=== PATIENT | female | born 1975 | race Caucasian/White ===

== ENCOUNTER → 2016-10-30 | Outpatient (CLI) | payer BC ==
--- NOTE | 2016-10-30 15:00 | WOMENS IMAGING REPORT ---
EXAM DESCRIPTION: BILAT SCREENING MAMMO W/CAD COMPLETED DATE/TIME: 10/30/2016 2:46 pm REASON FOR STUDY: ROUTINE SCREENING; Z12.31 Z12.31 ENCNTR SCREEN MAMMOGRAM FOR MALIGNANT NEOPLASM O F ABELINO COMPARISON: 2011, 2014 TECHNIQUE: Standard craniocaudal and mediolateral oblique views of each breast recorded using [employer] l acquisition. LIMITATIONS: None. FINDINGS: No masses, calcifications or architectural distortion. No areas of suspicion. Read with the assistance of CAD. .[facility] - R2 Cenova Version 1.3 .[facility] Imaging - R2 Cenova Version 1.3 .[facility] Imaging - R2 Cenova Version 2.4 .[facility] [place]2 Cenova Version 2.4 .[facility] - R2 Legal Editor Version 9.2 IMPRESSION: NORMAL MAMMOGRAM. BIRADS 1. BREAST DENSITY: b. There are scattered areas of fibroglandular density. BIRAD: 1 NEGATIVE RECOMMENDATION: ROUTINE SCREENING COMMENT: The patient has been notified of the results by letter per SA requirements. Additional no tification policies are in place for contacting patient with suspicious or incomplete findings. Quality ID #[id number]: The [employer] recommends an annual screening mammogram for women aged 40 years or over. This facility utilizes a reminder system to ensure that all patients receive reminder letters, and/or direct phone calls for appointments. This includes reminders for routine scr eening mammograms, diagnostic mammograms, or other Breast Imaging Interventions when appropriate. Th is patient will be placed in the appropriate reminder system. The [employer] (ACR) has developed recommendations for screening MRI of the breast s in certain patient populations, to be used in conjunction with mammography. Breast MRI surveillanc e may be appropriate for women with more than 20% lifetime risk of developing breast cancer as deter mined by genetic testing, significant family history of the disease, or history of mantle radiation f or Hodgkins Disease. ACR Practice Guidelines 2008. TECHNICAL DOCUMENTATION: FINDING NUMBER: (1) ASSESSMENT: (1) JOB ID: [id number] [employer]- All Rights Reserved
== END ==
LOC: WI 14:32
PROVIDERS: ATTEND Advanced Practice Midwife
DX: Z12.31 Encounter for screening mammogram for malignant neoplasm of breast (principal)
CPT/HCPCS: 77067; G0202

== ENCOUNTER → 2018-03-13 | Outpatient (CLI) | payer BC ==
--- NOTE | 2018-03-13 08:44 | WOMENS IMAGING REPORT ---
EXAM DESCRIPTION: BILAT SCREENING MAMMO W/CAD COMPLETED DATE/TIME: 03/13/2018 8:31 am REASON FOR STUDY: SCREENING CIPAHW07.31 ENCNTR SCREEN MAMMOGRAM FOR MALIGNANT NEOPLASM OF ABELINO COMPARISON: Multiple since 2011 TECHNIQUE: Standard craniocaudal and mediolateral oblique views of each breast recorded using [employer] l acquisition. LIMITATIONS: None. FINDINGS: RIGHT BREAST MASSES: No suspicious masses. CALCIFICATIONS: No new or suspicious calcifications. ARCHITECTURAL DISTORTION: None. DEVELOPING DENSITY: None. ASYMMETRY: None noted. OTHER: No other significant findings. LEFT BREAST MASSES: In the left upper outer quadrant, a low-density well-circumscribed 1.5 cm nodule present for which additional cone compression views, 90 mediolateral view and left breast ultrasound are recomme nded. CALCIFICATIONS: No new or suspicious calcifications. ARCHITECTURAL DISTORTION: None. DEVELOPING DENSITY: None. ASYMMETRY: None noted. OTHER: No other significant findings. Read with the assistance of CAD. .[facility] - R2 Cenova Version 1.3 .[facility] Imaging - R2 Cenova Version 1.3 .[facility] Imaging - R2 Cenova Version 2.4 .[facility] - R2 Cenova Version 2.4 .[facility] - R2 Manager Of Environmental Services Version 9.2 IMPRESSION: No mammographic evidence for malignancy right breast. Mammographic nodule in the left upper outer quadrant for which additional cone compression views and ultrasound are recommended BREAST DENSITY: b. There are scattered areas of fibroglandular density. BIRAD: 0 Incomplete: Needs Additional Imaging Evaluation and/or prior Mammograms for Comparison. RECOMMENDATION: RECOMMENDED FOLLOW-UP: Left breast additional diagnostic mammograms and ultrasound The patient will be contacted for additional imaging. COMMENT: The patient has been notified of the results by letter per SA requirements. Additional no tification policies are in place for contacting patient with suspicious or incomplete findings. Quality ID #[id number]: The [employer] recommends an annual screening mammogram for women aged 40 years or over. This facility utilizes a reminder system to ensure that all patients receive reminder letters, and/or direct phone calls for appointments. This includes reminders for routine scr eening mammograms, diagnostic mammograms, or other Breast Imaging Interventions when appropriate. Th is patient will be placed in the appropriate reminder system. The [employer] (ACR) has developed recommendations for screening MRI of the breast s in certain patient populations, to be used in conjunction with mammography. Breast MRI surveillanc e may be appropriate for women with more than 20% lifetime risk of developing breast cancer as deter mined by genetic testing, significant family history of the disease, or history of mantle radiation f or Hodgkins Disease. ACR Practice Guidelines 2008. TECHNICAL DOCUMENTATION: FINDING NUMBER: (1) ASSESSMENT: (1) JOB ID: [id number] [employer]- All Rights Reserved Reading location - IP/workstation name: [email or web address]
== END ==
LOC: WI 08:05
PROVIDERS: ATTEND Family Medicine
DX: Z12.31 Encounter for screening mammogram for malignant neoplasm of breast (principal)
CPT/HCPCS: 77067

== ENCOUNTER → 2018-03-21 | Outpatient (CLI) | payer BC ==
--- NOTE | 2018-03-21 09:19 | WOMENS IMAGING REPORT ---
EXAM DESCRIPTION: LEFT DIAGNOSTIC MAMMO W/CAD; U/S BREAST UNILAT LIMITED COMPLETED DATE/TIME: 03/21/2018 8:26 am; 03/21/2018 8:48 am REASON FOR STUDY: N63.21 UNSPECIFIED LUMP IN THE LEFT BREAST, UPPER OUTER QUADRANT; N63.21 LUMP IN L EFT BREAST N63.21 UNSPECIFIED LUMP IN THE LEFT BREAST, UPPER OUTER QUAD COMPARISON: Multiple since 2011 TECHNIQUE: Cone compression craniocaudal and mediolateral oblique images of the breast recorded with digital acquisition. Additional left breast 90 mediolateral view, additional left breast ultrasound was performed LIMITATIONS: None. FINDINGS: BREAST: Left MASSES: Persistent nodule left breast upper outer quadrant, about 12 mm in diameter. CALCIFICATIONS: No new or suspicious calcifications. ARCHITECTURAL DISTORTION: None. DEVELOPING DENSITY: None. ASYMMETRY: None noted. OTHER: No other significant findings. Read with the assistance of CAD. .[facility] - R2 Cenova Version 1.3 .[facility] Imaging - R2 Cenova Version 1.3 .[facility] Imaging - R2 Cenova Version 2.4 .[facility] - R2 Cenova Version 2.4 .[facility] - R2 Metal Bumper Version 9.2 Left breast ultrasound: Left breast ultrasound was performed. 5 to 6 cm from the nipple at the 12 to 1 o'clock position, a w ell-circumscribed anechoic cyst is present measuring 1.5 x 1.2 x 1 cm in size. This is benign and re quires no further specific follow up IMPRESSION: No mammographic or sonographic evidence for malignancy left breast BREAST DENSITY: b. There are scattered areas of fibroglandular density. BIRAD: 2 Benign findings. RECOMMENDATION: RECOMMENDED FOLLOW UP: Please continue yearly bilateral screening mammography in Mar SPECIFIC INTERVENTION/IMAGING/CONSULTATION RECOMMENDED:No additional intervention/ imaging/consultati on needed at this time. COMMUNICATION:The negative/benign results were communicated to the patient. COMMENT: The patient has been notified of the results by letter per MQSA requirements. Additional no tification policies are in place for contacting patient with suspicious or incomplete findings. Quality ID #[id number]: The [employer] recommends an annual screening mammogram for women aged 40 years or over. This facility utilizes a reminder system to ensure that all patients receive reminder letters, and/or direct phone calls for appointments. This includes reminders for routine scr eening mammograms, diagnostic mammograms, or other Breast Imaging Interventions when appropriate. Th is patient will be placed in the appropriate reminder system. The [employer] (ACR) has developed recommendations for screening MRI of the breast s in certain patient populations, to be used in conjunction with mammography. Breast MRI surveillanc e may be appropriate for women with more than 20% lifetime risk of developing breast cancer as deter mined by genetic testing, significant family history of the disease, or history of mantle radiation f or Hodgkins Disease. ACR Practice Guidelines 2008. TECHNICAL DOCUMENTATION: FINDING NUMBER: (1) ASSESSMENT: (1) JOB ID: [id number] [employer]- All Rights Reserved Reading location - IP/workstation name: [email or web address]
--- NOTE | 2018-03-21 09:19 | WOMENS IMAGING REPORT ---
EXAM DESCRIPTION: LEFT DIAGNOSTIC MAMMO W/CAD; U/S BREAST UNILAT LIMITED COMPLETED DATE/TIME: 03/21/2018 8:26 am; 03/21/2018 8:48 am REASON FOR STUDY: N63.21 UNSPECIFIED LUMP IN THE LEFT BREAST, UPPER OUTER QUADRANT; N63.21 LUMP IN L EFT BREAST N63.21 UNSPECIFIED LUMP IN THE LEFT BREAST, UPPER OUTER QUAD COMPARISON: Multiple since 2011 TECHNIQUE: Cone compression craniocaudal and mediolateral oblique images of the breast recorded with digital acquisition. Additional left breast 90 mediolateral view, additional left breast ultrasound was performed LIMITATIONS: None. FINDINGS: BREAST: Left MASSES: Persistent nodule left breast upper outer quadrant, about 12 mm in diameter. CALCIFICATIONS: No new or suspicious calcifications. ARCHITECTURAL DISTORTION: None. DEVELOPING DENSITY: None. ASYMMETRY: None noted. OTHER: No other significant findings. Read with the assistance of CAD. .[facility] - R2 Cenova Version 1.3 .[facility] Imaging - R2 Cenova Version 1.3 .[facility] Imaging - R2 Cenova Version 2.4 .[facility] [place] - R2 Cenova Version 2.4 .[facility] [place] - R2 Labor Gang Supervisor Version 9.2 Left breast ultrasound: Left breast ultrasound was performed. 5 to 6 cm from the nipple at the 12 to 1 o'clock position, a w ell-circumscribed anechoic cyst is present measuring 1.5 x 1.2 x 1 cm in size. This is benign and re quires no further specific follow up IMPRESSION: No mammographic or sonographic evidence for malignancy left breast BREAST DENSITY: b. There are scattered areas of fibroglandular density. BIRAD: 2 Benign findings. RECOMMENDATION: RECOMMENDED FOLLOW UP: Please continue yearly bilateral screening mammography in Mar SPECIFIC INTERVENTION/IMAGING/CONSULTATION RECOMMENDED:No additional intervention/ imaging/consultati on needed at this time. COMMUNICATION:The negative/benign results were communicated to the patient. COMMENT: The patient has been notified of the results by letter per MQSA requirements. Additional no tification policies are in place for contacting patient with suspicious or incomplete findings. Quality ID #[id number]: The [employer] recommends an annual screening mammogram for women aged 40 years or over. This facility utilizes a reminder system to ensure that all patients receive reminder letters, and/or direct phone calls for appointments. This includes reminders for routine scr eening mammograms, diagnostic mammograms, or other Breast Imaging Interventions when appropriate. Th is patient will be placed in the appropriate reminder system. The [employer] (ACR) has developed recommendations for screening MRI of the breast s in certain patient populations, to be used in conjunction with mammography. Breast MRI surveillanc e may be appropriate for women with more than 20% lifetime risk of developing breast cancer as deter mined by genetic testing, significant family history of the disease, or history of mantle radiation f or Hodgkins Disease. ACR Practice Guidelines 2008. TECHNICAL DOCUMENTATION: FINDING NUMBER: (1) ASSESSMENT: (1) JOB ID: [id number] [employer]- All Rights Reserved Reading location - IP/workstation name: [email or web address]
== END ==
LOC: WI 08:01
PROVIDERS: ATTEND Family Medicine
DX: N63.21 Unspecified lump in the left breast, upper outer quadrant (principal)
CPT/HCPCS: 76642

== ENCOUNTER → 2019-05-27 | Outpatient (CLI) | payer BC ==
--- NOTE | 2019-05-27 17:14 | WOMENS IMAGING REPORT ---
EXAM DESCRIPTION: BILAT SCREENING MAMMO W/CAD COMPLETED DATE/TIME: 05/27/2019 2:28 pm REASON FOR STUDY: Z12.39 SCREENING MAMMO Z12.39 ENCOUNTER FOR OT SCREENING FOR MALIGNANT NEOPLASM OF COMPARISON: 2016, 2017, 2018 EXAM PARAMETERS: Standard craniocaudal and mediolateral oblique views of each breast recorded using digital acquisition. Read with the assistance of CAD. .[facility] - R2 Senior Instrumentation Engineer Version 9.2 LIMITATIONS: None. FINDINGS: No suspicious masses, suspicious calcifications or architectural distortion. No areas of c oncern. IMPRESSION: Negative MAMMOGRAM. BIRADS 1 BREAST DENSITY: c. The breasts are heterogeneously dense, which may obscure small masses. BIRAD: ASSESSMENT: 1 NEGATIVE RECOMMENDATION: ROUTINE SCREENING Please continue yearly bilateral screening mammography/tomosynthesis in May 2020 COMMENT: The patient has been notified of the results by letter per SA requirements. Additional no tification policies are in place for contacting patient with suspicious or incomplete findings. Quality ID #[id number]: The [employer] recommends an annual screening mammogram for women aged 40 years or over. This facility utilizes a reminder system to ensure that all patients receive reminder letters, and/or direct phone calls for appointments. This includes reminders for routine scr eening mammograms, diagnostic mammograms, or other Breast Imaging Interventions when appropriate. Th is patient will be placed in the appropriate reminder system. TECHNICAL DOCUMENTATION: FINDING NUMBER: (1) ASSESSMENT: (1) JOB ID: [id number] [employer]- All Rights Reserved Reading location - IP/workstation name: [email or web address]
== END ==
LOC: WI 13:50
PROVIDERS: ATTEND Family Medicine
DX: Z12.31 Encounter for screening mammogram for malignant neoplasm of breast (principal)
CPT/HCPCS: 77067

== ENCOUNTER 2019-08-22 07:51 | Outpatient (CLI) | payer BC ==
[~2019-08-22 07:51] MED LIST: CYANOCOBALAMIN (VITAMIN B-12) INJ 1000 MCG/1 ML VIAL IM PRN; FERUMOXYTOL (NON-ESRD) 510 MG/NS 100 ML IV PRN; NORMAL SALINE 250 ML IV PRN
[2019-08-22 07:57] VITALS: BP 117/73
== END 2019-08-22 09:27 | disposition home or self-care (01) ==
LOC: II 07:51 → 5TH 07:51 → II 09:27
PROVIDERS: ATTEND Internal Medicine
DX: D50.8 Other iron deficiency anemias (principal); K90.9 Intestinal malabsorption, unspecified; D51.8 Other vitamin B12 deficiency anemias
CPT/HCPCS: 96365; Q0138; J3420; J7050; 96372

== ENCOUNTER 2019-08-29 08:04 | Outpatient (CLI) | payer BC ==
[~2019-08-29 08:04] MED LIST changes: -CYANOCOBALAMIN (VITAMIN B-12) INJ 1000 MCG/1 ML VIAL IM PRN
[2019-08-29 08:32] VITALS: BP 116/67
[2019-08-29] MEDS: CYANOCOBALAMIN (VITAMIN B-12) INJ 1000 MCG/1 ML VIAL IM PRN ×2 (08:56→09:16)
== END 2019-08-29 10:01 | disposition home or self-care (01) ==
LOC: II 08:04 → 5TH 08:08 → II 10:01
PROVIDERS: ATTEND Internal Medicine
DX: D50.8 Other iron deficiency anemias (principal); K90.9 Intestinal malabsorption, unspecified; D51.8 Other vitamin B12 deficiency anemias
CPT/HCPCS: 96365; 96372; Q0138; J3420; J7050

== ENCOUNTER → 2019-12-24 | Outpatient (CLI) | payer BC | LOC: RAD 10:22 | PROVIDERS: ATTEND Otolaryngology | DX: J33.9 Nasal polyp, unspecified (principal) | CPT/HCPCS: 70486 ==

== ENCOUNTER 2020-02-25 08:09 | Day surgery (SDC) | payer BC ==
[2020-02-25] MEDS ORDERED: CEFAZOLIN 2 GM/D5W RTU 2 GM/50 ML RTUPB IV PRN (08:11)
[2020-02-25] MEDS ORDERED: CEFAZOLIN 2 GM/D5W RTU 2 GM/50 ML RTUPB IV ONE (08:15)
[2020-02-25] MEDS ORDERED: BUPIVACAINE HCL 0.5%-EPI 1:200000 INJ/PF 30 ML VIAL ONE (09:18)
[2020-02-25] MEDS ORDERED: BACITRACIN ZINC OINTMENT 15 GM ONE (09:18)
[2020-02-25] MEDS ORDERED: BUPIVACAINE HCL 0.5%/EPI 1:200000 INJ 1.8 ML CARTRIDGE ONE (09:18)
[2020-02-25] MEDS ORDERED: OXYMETAZOLINE HCL 0.05% NASAL SPRAY 15 ML BOTTLE ONE (09:18)
[2020-02-25] MEDS ORDERED: ONDANSETRON HCL INJ/PF 4 MG/2 ML SDV ONE ×2 (09:25→14:25)
[2020-02-25] MEDS ORDERED: NEOSTIGMINE METHYLSULFATE 10 MG/10 ML VIAL ONE (09:25)
[2020-02-25] MEDS ORDERED: DEXAMETHASONE SOD PHOSPHATE INJ 4 MG/1 ML VIAL ONE (09:26)
[2020-02-25] MEDS ORDERED: MIDAZOLAM 2 MG/2 ML INJ ONE (09:26)
[2020-02-25] MEDS ORDERED: PROPOFOL INJ 200 MG/20 ML VIAL IV ONE (09:26)
[2020-02-25] MEDS ORDERED: FENTANYL CITRATE INJ/PF 250 MCG/5 ML AMPULE ONE (09:26)
[2020-02-25] MEDS ORDERED: GLYCOPYRROLATE INJ 0.4 MG/2 ML VIAL ONE (09:26)
[2020-02-25] MEDS ORDERED: ROCURONIUM BROMIDE INJ 50 MG/5 ML VIAL IV ONE (09:27)
[2020-02-25] MEDS ORDERED: SUCCINYLCHOLINE CHLORIDE INJ 200 MG/10 ML VIAL ONE (09:27)
[2020-02-25] MEDS ORDERED: LIDOCAINE 1%/EPINEPHRINE INJ 20 ML VIAL ONE (10:11)
[2020-02-25] MEDS ORDERED: FENTANYL CITRATE INJ/PF 100 MCG/2 ML AMPUL ONE ×2 (12:53→14:33)
--- NOTE | 2020-03-06 10:40 | Operative Report ---
Operative Report-[facility] Operative Report: DATE OF OPERATION: February 25, 2020 PREOPERATIVE DIAGNOSES: 1. Bilateral extensive sinonasal polyps/polyp disease 2. Acute recurrent sinusitis/ARS 3. Nasal septal deviation, Acquired 4. Bilateral inferior turbinate hypertrophy 5. Nasal Deformities, Acquired 6. Chronic Nasal Dyspnea 7. Chronic rhinosinusitis/CRS 8. Left isa bullosa/middle turbinate hypertrophy 9. Right middle turbinate hypertrophy POSTOPERATIVE DIAGNOSES: 1. Bilateral extensive sinonasal polyps/polyp disease 2. Acute recurrent sinusitis/ARS 3. Nasal septal deviation, Acquired 4. Bilateral inferior turbinate hypertrophy 5. Nasal Deformities, Acquired 6. Chronic Nasal Dyspnea 7. Chronic rhinosinusitis/CRS 8. Left isa bullosa/middle turbinate hypertrophy 9. Right middle turbinate hypertrophy PROCEDURES: 1. Extensive bilateral IG/image guidance FESS/functional endoscopic sinus surgery which was performed under bilateral transnasal rigid surgical endoscopy as follows: 2. Bilateral nasal passage polypectomies right greater than left 3. Bilateral maxillary antrostomies with removal of tissue 4. Bilateral total ethmoidectomies with removal of tissue and placement of 1 Propel steroid eluting stent per side 5. Bilateral frontal sinus sinusotomies with removal of tissue and placement of 1 Contour Propel steroid eluting stent per side 6. Bilateral sphenoidotomies with removal of tissue and placement of 1 Contour Propel steroid eluting stent per side 7. Septoplasty 8. Left isa bullosa reduction using focused tissue resection techniques and microdebrider tissue removal 9. Right middle turbinate reduction using focus tissue resection techniques and microdebrider tissue removal 10. Bilateral intramural inferior turbinate reductions using submucus resection techniques SURGEON: Dr. Honorio Rowland Anesthesia Staff: EZEQUIEL Claros ANESTHESIA: General endotracheal tube anesthesia/GETA DRAINS: None SPONGE COUNT: Verified NEEDLE COUNT: Verified SPECIMEN/MATERIALS FORWARD TO THE LAB: There was tissue removed from the bilateral nasal passages, maxillary sinuses, ethmoid sinuses, frontal sinuses, and sphenoid sinuses for permanent pathology evaluation and total eosinophil counts. ESTIMATED BLOOD LOSS: 50 mL TOTAL IV FLUIDS: 1300 mL URINE OUTPUT: 500 mL COMPLICATIONS: None IMPLANTS: There were a total of 6 Propel steroid eluting stents placed as noted above. FINDINGS: 1. There were extensive bilateral sinonasal polyps/polyp disease noted right greater than left nasal passages, and throughout the maxillary, ethmoid, frontal sinus, and sphenoid sinus areas with tissue removed for permanent pathology evaluation and total eosinophil counts. There was no sinonasal purulence. 2. Left nasal septal deviations involving bone and cartilage. 3. Bilateral middle turbinate and inferior turbinate hypertrophy, and left isa bullosa prominence. INDICATIONS: This is a 44-year-old white female patient who was seen and evaluated in the [place] otolaryngology office. The patient was referred for and they complained of a history of chronic sinonasal polyp disease over the years and chronic nasal dyspnea over the years. The patient underwent an extensive work-up to include CT sinus imaging and office-based sinonasal endoscopy. There was extensive discussion with the patient regarding septoplasty, image guidance functional endoscopic sinus surgery, removal of sinonasal tissue for polyp evaluation and pathology with total eosinophil counts being obtained to provide future therapy guidance, and inferior and middle turbinate reductions. The patient voiced an understanding of all that had been discussed and desired to proceed to also improve her overall quality of life. The procedures, and all of the risks and complications were all discussed in detail with the patient. She voiced an understanding, agreed to proceed, and consent was obtained. DESCRIPTION OF OPERATIVE PROCEDURE: The patient was taken to the main operating room and placed on the operating room table in the supine position. Appropriate monitors were placed. Using mask and IV access general anesthesia was induced. The patient was then transorally intubated without difficulty. The table was next positioned for sinonasal surgery. The patient underwent a nasal examination and local anesthetic with epinephrine was administered to establish a nasal block. The patient next had two Afrin soaked neuropatties placed into each nasal passage. The patient was then prepped and draped in the usual fashion for nasal surgery. The neuropatties were removed and the patient underwent a hemitransfixion incision. Findings are as noted above. There was elevation of the mucoperichondrial and mucoperiosteal flaps without difficulty. The bony cartilaginous junction was identified and divided and the most deviated portions of the bony and cartilaginous septum were removed without difficulty. There was a greater than 1.5 X 1.5 cm cartilaginous L-Strut preserved. Attention was now turned to performing bilateral inferior turbinate reductions. The turbinate bipolar wand was used to make 2 - 3 intramural passes in each inferior turbinate. At this point the turbinate microdebrider system at a setting of 1500 RPM was used to perform bilateral inferior turbinate submucus resections. This was followed by use of the [place] elevator to outfracture each inferior turbinate. Excessive/redundant mucosa at the anterior portion of the inferior turbinates was next trimmed with margins reapproximated with chromic suture. At this point the image guidance/IG functional endoscopic sinus surgery/FESS portion of the surgery was addressed in the following manner. Bilateral transnasal rigid surgical endoscopy and sinus surgical instrumentation to include a microdebrider system at a setting of 3000 RPM was utilized throughout this portion of the case. Findings are as noted above. First there was extensive removal of bilateral nasal passage polypectomies right greater than left. Once complete bilateral left middle turbinate/isa bullosa and right middle turbinate tissues were resected with tissue removal and microdebrider debulking. At this point the bilateral maxillary antrostomies, bilateral total ethmoidectomies, bilateral frontal sinus sinusotomies, and bilateral sphenoidotomies were completed with removal of tissue for permanent pathology and total eosinophil counts as noted above. At this point there were Contour Propel steroid eluting stents placed in each of the frontal sinus sinusotomy sites and of the sphenoidotomy sites, and in each of the total ethmoidectomy sites for a total of 6 Contour propel steroid eluding stents being placed. At this point the there was sinonasal irrigation and suctioning completed on each side with adequate hemostasis being noted. Once complete the septum was repositioned in the midline. Cartilage which had been excised during the case was placed back between the mucosal flaps. At this point the mucosal flaps were reapproximated and the hemitransfixion incision was closed using Chromic suture. This was followed by placement of intranasal supporting material consisting of 1 modified Merocel nasal pack with Afrin and bacitracin ointment in each nasal passage that was secured at the caudal aspect with 4-0 Prolene suture. The nose was then cleaned and dried. Next, the patient was returned to the anesthesia staff and was allowed to emerge from general anesthesia. The patient was extubated in the main operating room and was then transported to the postanesthesia recovery unit in stable condition. There were no complications.
== END 2020-02-25 15:24 | disposition home or self-care (01) ==
LOC: SC 08:09
PROVIDERS: ATTEND Otolaryngology
DX: J33.8 Other polyp of sinus (principal); J34.2 Deviated nasal septum; J34.3 Hypertrophy of nasal turbinates; J34.89 Other specified disorders of nose and nasal sinuses; R06.09 Other forms of dyspnea; J01.91 Acute recurrent sinusitis, unspecified; E03.9 Hypothyroidism, unspecified; Z79.899 Other long term (current) drug therapy; D64.9 Anemia, unspecified; K21.9 Gastro-esophageal reflux disease without esophagitis; Z01.812 Encounter for preprocedural laboratory examination; Z20.828 Contact with and (suspected) exposure to other viral communicable diseases
CPT/HCPCS: 88305 ×2; 00160; 31267; 31259; 30520; 30140; 31240; 30115; C1726; C1778; C2625 ×2; C1758; U0003; J2250; J3490 ×5; J1100; J3010 ×2; J2710; J0330; J2405; J2704; J0690; C9803; 160; 87635